=== PATIENT | female | born 1975 | race Caucasian/White ===

== ENCOUNTER → 2016-03-24 | Outpatient (CLI) | payer OTHER ==
[2016-03-25 07:11] LABS: ESTRADIOL 390.2 pg/mL (.); PROGESTERONE 36.4 ng/mL (.)
== END ==
LOC: OD 10:21
PROVIDERS: ATTEND Nurse Practitioner Primary Care
DX: Z32.00 Encounter for pregnancy test, result unknown (principal)
CPT/HCPCS: 36415; 82670; 84144; 84702

== ENCOUNTER → 2016-03-27 | Outpatient (CLI) | payer OTHER | LOC: OD 10:13 | PROVIDERS: ATTEND Nurse Practitioner Primary Care | DX: Z32.00 Encounter for pregnancy test, result unknown (principal) | CPT/HCPCS: 36415; 84702 ==

== ENCOUNTER → 2016-03-31 | Outpatient (CLI) | payer OTHER | LOC: OD 09:06 | PROVIDERS: ATTEND Nurse Practitioner Primary Care | DX: Z32.00 Encounter for pregnancy test, result unknown (principal) | CPT/HCPCS: 36415; 84702 ==

== ENCOUNTER → 2016-04-03 | Outpatient (CLI) | payer OTHER | LOC: OD 10:45 | PROVIDERS: ATTEND Nurse Practitioner Primary Care | DX: Z34.80 Encounter for supervision of other normal pregnancy, unspecified trimester (principal) | CPT/HCPCS: 36415; 84702 ==

== ENCOUNTER → 2016-04-07 | Outpatient (CLI) | payer OTHER | LOC: OD 13:58 | PROVIDERS: ATTEND Nurse Practitioner Primary Care | DX: O09.299 Supervision of pregnancy with other poor reproductive or obstetric history, unspecified trimester (principal); O09.529 Supervision of elderly multigravida, unspecified trimester; Z3A.00 Weeks of gestation of pregnancy not specified | CPT/HCPCS: 36415; 84702 ==

== ENCOUNTER → 2016-04-10 | Outpatient (CLI) | payer OTHER | LOC: OD 10:48 | PROVIDERS: ATTEND Nurse Practitioner Primary Care | DX: O20.0 Threatened abortion (principal) | CPT/HCPCS: 36415; 84702 ==

== ENCOUNTER → 2016-04-14 | Outpatient (CLI) | payer OTHER | LOC: OD 12:05 | PROVIDERS: ATTEND Nurse Practitioner Primary Care | DX: O09.01 Supervision of pregnancy with history of infertility, first trimester (principal) | CPT/HCPCS: 36415; 84702 ==

== ENCOUNTER → 2019-05-13 | Outpatient (CLI) | payer OTHER | LOC: DACC 10:22 | PROVIDERS: ATTEND Physician Assistant | DX: L30.9 Dermatitis, unspecified (principal); L81.4 Other melanin hyperpigmentation | CPT/HCPCS: 36415; 86038 ==